=== PATIENT | male | born 1980 | race Two or more races ===

== ENCOUNTER 2023-06-10 10:18 | Emergency (ER) | payer OTHER ==
[~2023-06-10] VITALS: Ht 182.9 cm; Wt 95.3 kg
== END 2023-06-10 11:42 | disposition home or self-care (01) ==
LOC: ER 10:19
DX: S51.812A Laceration without foreign body of left forearm, initial encounter (principal); W25.XXXA Contact with sharp glass, initial encounter; Y93.89 Activity, other specified; Y92.89 Other specified places as the place of occurrence of the external cause; Y99.8 Other external cause status

== ENCOUNTER 2023-06-19 07:04 | Emergency (ER) | payer OTHER ==
[~2023-06-19] VITALS: Ht 182.9 cm; Wt 90.7 kg
== END 2023-06-19 10:24 | disposition home or self-care (01) ==
LOC: ER 07:05
DX: Z48.02 Encounter for removal of sutures (principal)

== ENCOUNTER → 2023-07-19 | Emergency (ER) | payer OTHER ==
[~2023-07-19] VITALS: Ht 182.9 cm; Wt 95.3 kg
[~2023-07-19] MED LIST: 0.9 % SODIUM CHLORIDE 1,000 ML IV SCH; PROPOFOL 10 MG/1 ML VIAL 50ML IV ONE
== END | disposition home or self-care (01) ==
LOC: ER 17:26
DX: S43.085A Other dislocation of left shoulder joint, initial encounter (principal); X58.XXXA Exposure to other specified factors, initial encounter; Y93.69 Activity, other involving other sports and athletics played as a team or group; Y92.89 Other specified places as the place of occurrence of the external cause; Y99.8 Other external cause status